=== PATIENT | female | born 2000 | race Caucasian/White ===

== ENCOUNTER 2020-03-12 22:22 | Inpatient (IN) ==
[2020-03-12] MEDS ORDERED: Naloxone 0.4 MG/ML INJ IVP PRN ×2 (22:33→22:52)
[2020-03-12] MEDS ORDERED: Lidocaine 1% 20 ML MDV INFILT PRN (22:33)
[2020-03-12] MEDS ORDERED: Metoclopramide 10 MG/2 ML VIAL IVP PRN (22:33)
[2020-03-12] MEDS ORDERED: *HR* FentaNYL (PF) 100 MCG/2 ML VIAL IVP PRN (22:33)
[2020-03-12] MEDS ORDERED: Famotidine 20 MG/2 ML VIAL IVP PRN (22:33)
[2020-03-12] MEDS ORDERED: Ondansetron 4 MG/2 ML VIAL IVP PRN ×2 (22:33→22:52)
[2020-03-12] MEDS ORDERED: Ringers Solution, Lactated 1,000 ML ONE (22:41)
[2020-03-12] MEDS ORDERED: Ringers Solution, Lactated 1,000 ML IVC SCH (22:45)
[2020-03-12 22:49] LABS: Basophils # 0.1 K/mcL (0.0-0.2); Basophils % 0.3 %; Eosinophils # 0.1 K/mcL (0.0-0.6); Eosinophils % 0.5 %; Hematocrit 38.8 % (35.3-44.9); Hemoglobin 12.8 g/dL (11.5-15.4); Immature Granulocytes % 0.5 % (0-4); Lymphocytes # 3.1 K/mcL (0.6-4.6); Lymphocytes % 20.8 %; Mean Corpuscular Hemoglobin 27.2 pg (28.0-33.3); Mean Corpuscular Volume 82.6 fL (83.0-100.0); Mean Platelet Volume 10.3 fL (9.4-12.4); Monocytes # 0.6 K/mcL (0.0-1.3); Monocytes % 4.2 %; Neutrophils # 11.1 K/mcL (1.6-8.9); Platelet Count 441 K/mcL (140-400); Segmented Neutrophils % 73.7 %
[2020-03-12] MEDS ORDERED: Ropivacaine/PF 0.2% 20 ML VIAL EP ONE (22:52)
[2020-03-12] MEDS ORDERED: EPHEDrine 50 MG/ML VIAL IVP PRN (22:52)
[2020-03-12] MEDS ORDERED: Epidural Premix (fent/bupiv) 110 ML EP SCH (23:00)
[2020-03-13] MEDS ORDERED: Oxytocin 20 units/ LR 1000 mL 20 UNIT/1,000 ML BAG IVC ONE (01:47)
[2020-03-13] MEDS ORDERED: Acetaminophen 325 MG TABLET PO PRN (04:43)
[2020-03-13] MEDS ORDERED: Sennosides 8.6 MG TABLET PO PRN (04:43)
[2020-03-13] MEDS ORDERED: Lanolin 7 G OINT...G. TP PRN (04:43)
[2020-03-13] MEDS ORDERED: Benzocaine/Menthol 56 GM AEROSOL SPRAY TP PRN (04:43)
[2020-03-13] MEDS ORDERED: Oxytocin 20 units/ LR 1000 mL 20 UNIT/1,000 ML BAG IVC SCH (04:43)
[2020-03-13] MEDS: Prenatal Vit/FA 1 EACH TABLET PO SCH (08:16)
[2020-03-13] MEDS ORDERED: Mag Hydrox/Al Hydrox/Simeth 30 ML UDC PO PRN (17:18)
[2020-03-13] MEDS: Famotidine 20 MG TABLET PO SCH (17:32)
[2020-03-13] MEDS: Ibuprofen 600 MG TABLET PO PRN (17:36)
[2020-03-14 07:31] LABS: Basophils # 0.1 K/mcL (0.0-0.2); Basophils % 0.4 %; Eosinophils # 0.1 K/mcL (0.0-0.6); Eosinophils % 1.1 %; Hematocrit 33.5 % (35.3-44.9); Immature Granulocytes % 0.6 % (0-4); Lymphocytes # 3.5 K/mcL (0.6-4.6); Lymphocytes % 30.8 %; Mean Corpuscular HGB Conc 30.7 g/dL (31.6-35.5); Mean Corpuscular Hemoglobin 26.5 pg (28.0-33.3); Mean Corpuscular Volume 86.1 fL (83.0-100.0); Monocytes # 0.6 K/mcL (0.0-1.3); Monocytes % 5.2 %; Neutrophils # 7.1 K/mcL (1.6-8.9); Platelet Count 326 K/mcL (140-400); Red Blood Count 3.89 M/mcL (3.82-4.97); Red Cell Distribution Width 14.3 % (11.5-14.5); Segmented Neutrophils % 61.9 %; White Blood Count 11.4 K/mcL (4.3-11.1)
[2020-03-14 07:32] LABS: Hemoglobin 10.3 g/dL (11.5-15.4)
[2020-03-14 08:09] VITALS: BP 107/60
[2020-03-14] MEDS: Prenatal Vit/FA 1 EACH TABLET PO SCH (10:19)
[2020-03-14] MEDS: Ibuprofen 600 MG TABLET PO PRN (10:19)
[2020-03-14] MEDS: Famotidine 20 MG TABLET PO SCH (10:19)
== END 2020-03-14 14:41 | disposition home or self-care (01) | DRG 560 ==
LOC: 1NENULAB 22:22 → 1NENUOBS 03-13 04:52
PROVIDERS: ADMIT Obstetrics & Gynecology; ATTEND Obstetrics & Gynecology